=== PATIENT | female | born 1980 | race African-American/Black ===

== ENCOUNTER 2019-01-03 09:18 | Day surgery (SDC) | payer BC ==
[2019-01-03] VITALS (9 sets, daily range): BP systolic 108–136; BP diastolic 58–86
[~2019-01-03] VITALS: Ht 157.5 cm; Wt 63.5 kg
[~2019-01-03 09:18] MED LIST: IBUPROFEN600 MG ORAL; ceFAZolin sod 1 GM in NS 55 ML IVPB ONE
[2019-01-03 10:15] LABS: BASOPHILS % (AUTO) 1.4 % (0.0-2.0); EOSINOPHILS % (AUTO) 3.1 % (0.0-3.0); HEMATOCRIT 38.1 % (37.0-47.0); HEMOGLOBIN 12.2 G/DL (12.0-16.0); LYMPHOCYTES % (AUTO) 20.9 % (20.0-45.0); MEAN CORPUSCULAR VOLUME 84 FL (80-99); NEUTROPHILS % (AUTO) 64.6 % (45.0-75.0); PLATELET COUNT 215 K/UL (150-450); RED BLOOD COUNT 4.55 M/UL (4.20-5.40); RED CELL DISTRIBUTION WIDTH 12.3 % (11.6-14.8); WHITE BLOOD COUNT 6.3 K/UL (4.8-10.8)
[2019-01-03 10:26] LABS: ANION GAP 6 mmol/L (5-15); BLOOD UREA NITROGEN 11 mg/dL (7-18); CALCIUM 8.9 MG/DL (8.5-10.1); CARBON DIOXIDE 26 MMOL/L (21-32); CHLORIDE 106 MMOL/L (98-107); CREATININE 0.7 MG/DL (0.55-1.30); POTASSIUM 3.9 MMOL/L (3.5-5.1); SODIUM 138 MMOL/L (136-145)
[2019-01-03] MEDS ORDERED: Lidocaine 1% Plain 30 ml INJ ONE (10:32)
[2019-01-03] MEDS ORDERED: Bacitracin 50000 Units Vial ONE (10:32)
[2019-01-03] MEDS ORDERED: Dexamethasone 4mg/ml vial ONE ×2 (10:32→11:30)
[2019-01-03] MEDS ORDERED: Bacitracin Oint 15gm Tube TOPIC ONE (10:33)
--- NOTE | 2019-01-03 11:26 | Pre-Procedure Note/Attestation ---
Pre-Procedure Note/Attestation Complete Prior to Procedure Planned Procedure: bilateral Procedure Narrative: correction of hammer toe and mallet toe right 4th and 5th and left 5th with arthroplasty and tendon release with possible k-wire fixation Indications for Procedure Pre-Operative Diagnosis: painful hammer toe and mallet toe 4th and 5th right and 5th left Attestation I attest that I discussed the nature of the procedure; its benefits; risks and complications; and alternatives (and the risks and benefits of such alternatives ), prior to the procedure, with the patient (or the patient's legal regional sales representative). I attest that, if there was a reasonable possibility of needing a blood transfusion, the patient (or the patient's legal regional sales representative) was given the [place] [employer] standardized written summary, pursuant to the [place] Blood Safety Act ([place] Health and Safety Code # 1645, as amended). I attest that I re-evaluated the patient just prior to the surgery and that there has been no change in the patient's H&P, except as documented below: Keenan Mccullough DPM Jan 03, 2019 11:26
[2019-01-03] MEDS ORDERED: LR 1000ml 1,000 ML IVLG SCH (11:29)
[2019-01-03] MEDS ORDERED: Sodium Chloride 10ml vial INJ ONE (11:30)
[2019-01-03] MEDS ORDERED: HYDROcodone/Acetamin 7.5/325 tab ORAL PRN (11:30)
[2019-01-03] MEDS ORDERED: Ketorolac 30mg Inj IV PRN ×2 (11:30)
[2019-01-03] MEDS ORDERED: Sterile Water Irrig 1000ml IRRIG ONE (11:30)
[2019-01-03] MEDS ORDERED: HYDROcodone/Acetamin 5/325 tab ORAL PRN (11:30)
[2019-01-03] MEDS ORDERED: Acetaminophen (Non formulary) 100 ML IV ONE (11:30)
[2019-01-03] MEDS ORDERED: Metoclopramide 10mg/2ml Inj IVP PRN (11:30)
[2019-01-03] MEDS ORDERED: LORazepam Inj 2mg/ml 1ml IV PRN (11:30)
[2019-01-03] MEDS ORDERED: Midazolam 2mg/2ml Inj IVP PRN (11:30)
[2019-01-03] MEDS ORDERED: DiphenhydrAMINE 50mg/ml Inj IVP PRN (11:30)
[2019-01-03] MEDS ORDERED: NS Irrig 1000ml ONE (11:30)
[2019-01-03] MEDS ORDERED: Hydromorphone 0.5mg/0.5ml inj IVP PRN (11:30)
[2019-01-03] MEDS ORDERED: fentaNYL 100 mcg/2 mL IV PRN (11:30)
[2019-01-03] MEDS ORDERED: Labetalol 5mg/ml 20ml vial IV PRN (11:30)
[2019-01-03] MEDS ORDERED: Propofol 200mg/20ml IV ONE (11:30)
[2019-01-03] MEDS ORDERED: LR 1000ml ONE (11:30)
[2019-01-03] MEDS ORDERED: Lidocaine 1% MPF 10mg/ml 5ml ONE ×2 (11:30)
[2019-01-03] MEDS ORDERED: Atropine Sulfate 0.4mg/ml inj IVP PRN (11:30)
[2019-01-03] MEDS ORDERED: Meperidine 50mg/ml Inj(FOR RIGORS ONLY) IVP PRN (11:30)
[2019-01-03] MEDS ORDERED: oxyCODONE HCL/Acetaminophen 5/325mg ORAL PRN (11:30)
--- NOTE | 2019-01-03 11:36 | Anethesia Preoperative Eval ---
Anesthesia Pre-op PMH/ROS General Date of Evaluation: Jan 03, 2019 Time of Evaluation: 11:41 Anesthesiologist: Dylan ASA Score: ASA 1 Mallampati Score Class I : Soft palate, uvula, fauces, pillars visible Class II: Soft palate, uvula, fauces visible Class III: Soft palate, base of uvula visible Class IV: Only hard plate visible Mallampati Classification: Class I Surgeon: Sadia Diagnosis: Bilateral Hammertoes, 5th Metatarsal Surgical Procedure: Bilateral Hammertoes Correction, 5th Metatarsal, With Arthrotomy Anesthesia History: none Family History: no anesthesia problems Allergies: Coded Allergies: WHEAT (Verified Adverse Reaction, Intermediate, stomach problem, 01/02/19) Uncoded Allergies: tape (Allergy, Intermediate, hives, 01/02/19) adhesive tape Medications: see eMAR Patient NPO?: Yes Past Medical History PSxH Narrative: Uterine Myoma Sx Anesthesia Pre-op Phys. Exam Physician Exam Last Vital Signs Date Time Temp Pulse Resp B/P (MAP) Pulse Ox O2 Delivery O2 Flow Rate FiO2 01/03/19 10:12 Room Air 01/03/19 10:06 98.1 76 18 125/59 100 Constitutional: NAD Neurologic: CN 2-12 intact Cardiovascular: RRR Respiratory: CTA Gastrointestinal: S/NT/ND Airway Exam Mallampati Score: Class I MO: full ROM: full Teeth: intact Anesthesia Pre-op A/P Labs Hematology Test 01/03/19 09:50 White Blood Count 6.3 K/UL (4.8-10.8) Red Blood Count 4.55 M/UL (4.20-5.40) Hemoglobin 12.2 G/DL (12.0-16.0) Hematocrit 38.1 % (37.0-47.0) Mean Corpuscular Volume 84 FL (80-99) Mean Corpuscular Hemoglobin 26.8 PG (27.0-31.0) L Mean Corpuscular Hemoglobin Concent 32.0 G/DL (32.0-36.0) Red Cell Distribution Width 12.3 % (11.6-14.8) Platelet Count 215 K/UL (150-450) Mean Platelet Volume 7.6 FL (6.5-10.1) Neutrophils (%) (Auto) 64.6 % (45.0-75.0) Lymphocytes (%) (Auto) 20.9 % (20.0-45.0) Monocytes (%) (Auto) 10.0 % (1.0-10.0) Eosinophils (%) (Auto) 3.1 % (0.0-3.0) H Basophils (%) (Auto) 1.4 % (0.0-2.0) Coagulation Test 01/03/19 09:50 Prothrombin Time 10.5 SEC (9.30-11.50) Prothromb Time International Ratio 1.0 (0.9-1.1) Activated Partial Thromboplast Time 28 SEC (23-33) Chemistry Test 01/03/19 09:50 Sodium Level 138 MMOL/L (136-145) Potassium Level 3.9 MMOL/L (3.5-5.1) Chloride Level 106 MMOL/L (98-107) Carbon Dioxide Level 26 MMOL/L (21-32) Anion Gap 6 mmol/L (5-15) Blood Urea Nitrogen 11 mg/dL (7-18) Creatinine 0.7 MG/DL (0.55-1.30) Estimat Glomerular Filtration Rate > 60 mL/min (>60) Glucose Level 82 MG/DL (74-106) Calcium Level 8.9 MG/DL (8.5-10.1) Urine Test Test 01/03/19 09:40 Urine HCG, Qualitative Negative (NEGATIVE) Risk Assessment & Plan Assessment: ASA 1 Plan: GA, SED Status Change Before Surgery: No Pre-Antibiotics Dru Gram Ancef IV Given Within 1 Hr of Incision: Yes Time Given: 11:58 Gómez Dominique MD Jan 03, 2019 11:36
[2019-01-03] MEDS: Bupivacaine 0.25% Inj 30ml INJ ONE ×2 (11:45→12:30)
--- NOTE | 2019-01-03 12:32 | Immediate Post-Op Evaluation ---
Immediate Post-Op Evalulation Immediate Post-Op Evalulation Procedure: Bilateral Hammertoes Correction, 5th Metatarsal, With Arthrotomy Date of Evaluation: Jan 03, 2019 Time of Evaluation: 14:02 IV Fluids: 800 LR Blood Products: 0 Estimated Blood Loss: 15 Urinary Output: 0 Blood Pressure Systolic: 133 Blood Pressure Diastolic: 81 Pulse Rate: 76 Respiratory Rate: 16 O2 Sat by Pulse Oximetry: 100 Temperature (Fahrenheit): 97 Pain Score (1-10): 2 Nausea: No Vomiting: No Complications 0 Patient Status: awake, reacts, patent, none Hydration Status: adequate Dru Gram Ancef IV Given Within 1 Hr of Incision: Yes Time Given: 11:58 Gómez Dominique MD Jan 03, 2019 12:32
--- NOTE | 2019-01-03 12:33 | 48 Hour Post Anesthesia Eval ---
Post Anesthesia Evaluation Procedure: Bilateral Hammertoes Correction, 5th Metatarsal, With Arthrotomy Date of Evaluation: Jan 03, 2019 Time of Evaluation: 16:12 Blood Pressure Systolic: 121 0: 64 Pulse Rate: 64 Respiratory Rate: 18 Temperature (Fahrenheit): 98.2 O2 Sat by Pulse Oximetry: 100 Airway: patent Nausea: No Vomiting: No Pain Intensity: 0 Hydration Status: adequate Cardiopulmonary Status: Stable Mental Status/LOC: patient returned to baseline Follow-up Care/Observations: 0 Post-Anesthesia Complications: 0 Follow-up care needed: ready to discharge Gómez Dominique MD Jan 03, 2019 12:33
--- NOTE | 2019-01-03 13:41 | Brief Operative Note ---
Immediate Post Operative Note Operative Note Pre-op Diagnosis: painful hammer toe and mallet toe 4th and 5th right and 5th left Procedure: correction of hammer toe and mallet toe with arthroplasty pipj and dipj bilateral 5th and dipj 4rth right with tendon release. Post-op Diagnosis: same as pre-op Surgeon: keenan mccullough Anesthesiologist: michelle Anesthesia: MAC Specimen: yes Complications: none Condition: stable Fluids: 0 Estimated Blood Loss: none Drains: none Tourniquet time: 75 Implant(s) used?: No Keenan Mccullough DPM Jan 03, 2019 13:41
--- NOTE | 2019-01-03 17:47 | Diagnostic Imaging Report ---
Indication: Right foot pain Technique: 3 views right foot Comparison: none Findings: There is hammertoe deformity of the second through fifth digits. The joint spaces are preserved. No acute fractures. No dislocations. Impression: No acute process. Findings as noted
--- NOTE | 2019-01-03 17:47 | Diagnostic Imaging Report ---
Indication: Left foot pain Technique: 3 views left foot Comparison: none Findings: No acute fractures. No dislocations. There is hammertoe deformity of the second through fifth digits. There is mild degenerative change of the first metatarsophalangeal joint.. Impression: No acute process
--- NOTE | 2019-01-03 17:49 | Diagnostic Imaging Report ---
Indication: Postoperative , pain, status post osteotomy Technique: 3 views left foot Comparison: none Findings: Patient is status post osteotomy of the head of the fifth proximal phalanx. There is some irregularity in the soft tissues related to surgical exposure. No acute fractures. No dislocations. Impression: Postoperative left foot. No unusual features
--- NOTE | 2019-01-03 17:49 | Diagnostic Imaging Report ---
Indication: Postoperative pain Technique: 3 views right foot Comparison: None Findings: Patient is status post osteotomy of the distal aspect of the fifth proximal phalanx and the distal aspect of the fifth middle phalanx. There is also evidence of osteotomy of the fourth middle phalanx. Retained air from the surgical exposure is seen in the soft tissues. Impression: Postsurgical changes, as described. No unusual features
--- NOTE | 2019-01-03 22:15 | Pre-op HX & Phy Repo 2 SIG ---
DATE OF ADMISSION: 01/03/2019 NOTE: "DICTATION CANCELED" DATE OF SURGERY: 01/03/2019 at [facility]. HISTORY OF PRESENT ILLNESS: This is a 38-year-old female. Keenan Mccullough D.P.M. DR: SAMMIE JOB#: [id number] CC:
--- NOTE | 2019-01-03 22:30 | Pre-op HX & Phy Repo 2 SIG ---
DATE OF ADMISSION: 01/03/2019 HISTORY OF PRESENT ILLNESS: This is a 38-year-old female complaining of bilateral foot pain secondary to hammertoe and mallet toe that has resulted in a painful corn, bilateral foot for the past few years, but the pain and deformity has been progressively getting worse over the past few years. The patient has tried conservative treatment including padding, offloading, shoe gear, orthotics without any resolution in pain or deformity. She reports no recent illnesses. No recurrent nausea, vomiting, chills, or shortness of breath. The patient is scheduled to have surgery today at [facility]. PAST MEDICAL HISTORY: Positive for migraines. PAST SURGICAL HISTORY: None pertinent. ALLERGIES: No known drug allergies. SOCIAL HISTORY: Denies illicit drugs. FAMILY HISTORY: No pertinent findings. PHYSICAL EXAMINATION: VITAL SIGNS: Temperature is 98.8, pulse is 66, respiratory rate 16, and blood pressure is 120/80. DERMATOLOGICAL: There are no open lesions. There are multiple hyperkeratotic tissue with lesion on bilateral fifth PIPJ as well as the DIPJ joint and the fourth right distal interphalangeal joints. MUSCULOSKELETAL: Contracted digit bilaterally, fifth and fourth is noticed. Full muscle strength. No swelling is noted at this time. ASSESSMENT AND PLAN: This is a 38-year-old female with bilateral foot deformity secondary to hammertoe and mallet toe formation. The patient tried conservative measures, however, she still has daily pain. I recommended surgery as an extensive management. The risks, benefits, and alternatives were discussed with the patient in detail, who understands and would like to proceed with surgical intervention. All the patient's questions have been answered and the patient is scheduled to have surgery today at [facility]. Keenan Mccullough D.P.M. DR: Parisa JOB#: [id number] CC:
--- NOTE | 2019-01-04 05:00 | Operative Note - Dictated ---
DATE OF OPERATION: 01/03/2019 NOTE: POOR AUDIO LOCATION: [facility]. PREOPERATIVE DIAGNOSIS: Bilateral hammertoe and mallet toe fifth, mallet toe fourth, right foot. POSTOPERATIVE DIAGNOSIS: Hammertoe and mallet toe, bilateral fifth and fourth toe mallet toe, right. TITLE OF OPERATION: Correction of hammertoe and mallet toe with arthroplasty fifth PIPJ as well as DIPJ with release of tendon and fourth distal interphalangeal joint right foot arthroplasty with tendon release. HEMOSTASIS: Pneumatic ankle tourniquet at 250 mmHg. ESTIMATED BLOOD LOSS: Negligible. MATERIALS USED: 3-0 Vicryl, 4-0 Vicryl, 5-0 nylon. INJECTABLES: 20 mL of 0.25% plain Marcaine and 1% lidocaine in the ratio of 1:1 was injected in the right as well as left foot in terms of Mendez fashion at the digits fifth bilaterally and the fourth right. Postoperatively, 2 mL of dexamethasone plus 6 mL of Marcaine was injected into the digits fifth bilaterally and right fourth. PATHOLOGY: Bone resected from proximal phalanx and distal phalanx was sent to pathology for further study. DRESSING: The incision was covered using Steri-Strips, Steri-Strips, Xeroform, Betadine, bacitracin ointment, 4 x 4, sterile Coban. COMPLICATIONS: None. CONDITION: Stable. ANESTHESIOLOGIST: Gómez Dominique M.D. DESCRIPTION OF PROCEDURE IN DETAIL: The patient was brought into the operating room and placed in table in supine position. She was well padded to avoid any excessive pressure. The patient was then given 1 gram of Ancef before the start of surgery. A time-out was performed. A well-padded ankle pneumatic tourniquet was then placed about the patient's right as well as the left ankle. Local anesthesia block was administered to the patient in terms of Mendez block in the following digit, bilateral fifth and the fourth toe, right. The foot was then draped and scraped in the usual manner. Attention was then directed to the left foot. After Esmarch, a pneumatic ankle tourniquet was inflated to 250 mmHg. At this time, the preplanned incision was made on the fifth toe on the left. The incision was linear crossing the PIP as well as the DIPJ joint. The incision was deepened through subcutaneous tissue. The incision was deepened first down to the level of the capsule at the PIPJ joint. The PIPJ joint was transverse. The capsule was transverse and the head of the proximal phalanx was exposed. The lateral capsule was dissected away and at this time, it was noted that the head of the proximal phalanx is hypertrophic. At this time, about 3 mm of the head of the proximal phalanx of the left foot was removed. Attention was then noticed to the distal DIPJ joint. It was noticed that the contraction of the mallet still remained. A transverse capsulotomy was also performed at the distal joint where the head of the middle phalanx was then exposed. It was noted to be hypertrophic. Approximately 2 mm of the head was excised. At this time through the distal incision, the flexor tendon was tenotomized. It was noticed that the incision was in the very rectus position. At this time, the extensor tendon were reapproximated and closed using 3-0 Vicryl and subsequently the subcutaneous tissue was closed using 4-0 Vicryl after lavaging with normal saline and subsequently the skin was closed using 5-0 nylon. It was noticed after that the remains in good position. Steri-Strip was then utilized not crossing the wound as a stabilizing factor to 05:02 rectus. Dry sterile dressing was applied to the patient's foot that included Xeroform ointment, 4 x 4, Nunu, and Coban. At this time, the injection of dex and Marcaine was utilized at the injection sites for postoperative pain management. The ankle tourniquet was then deflated and immediate hyperemia was noted to digits 1 through 5 on the left foot. At this time, attention was then directed to the right foot with the fifth toe and the fourth toe were noticed to have suffered from deformity of the mallet and hammertoe. Attention was then directed to the fifth toe on the right where incision was made over the deformity linear incision crossing the PIP as well as the DIPJ joint. The incision was deepened through subcutaneous tissue. All bleeders are ligated and vital tissue was retracted. A transverse capsulotomy was performed at the head of the proximal phalanx. Head of the proximal phalanx was freed from its attachment. It was noticed to be hypertrophic at this time. A 2 to 3 mm of the head of the proximal phalanx was osteotomized and passed from the field. A correction was noticed, but it was noticed the distal joint continued to have contraction and mallet deformity. At this time, through the original incision, a transverse capsulotomy was also made over the DIPJ joint to expose the medial phalanx and the head of the medial phalanx was noted to be hypertrophic 06:42. 2 mm of the head of the medial phalanx was then osteotomized and passed from the field. At this time, attention was directed to the extensor tendon, which was noticed to be tight and contracted through the original incision, was done through the extensor tendon. The toe was seen in great improvement in rectus position. The tendons were reapproximated using 3-0 Vicryl. Subsequently, the subcutaneous tissue was closed using 4-0 Vicryl and subsequently the skin was closed using 4-0 nylon. Before the closure, the area was lavaged using normal saline and bacitracin solution. At this time, postoperative injection was given into the area. At this time, attention was then directed to the fourth toe where the deformity was noticed the distal interphalangeal joint and the second across the fourth toe, right, which was noticed to be mallet. A linear incision approximately 5 mm was done contouring the . The wedge of the skin was removed and then the incision was deepened through subcutaneous tissue down to the level of capsule and also a transverse capsulotomy was performed to expose the head of the middle phalanx. The head of the middle phalanx was noticed to be hypertrophic. Approximately using a sagittal saw, 2 mm of the head was osteotomized, passed from the field through the original incision. The plantar aspect was also released, which would be the extensor tendon. At this time, the joint was noticed to be in normal alignment. Subsequently, the extensor tendon was approximated using 3-0 Vicryl and the skin was closed using 4-0 nylon. At this time, injection of dex and Marcaine was given. Attention was directed to dressing where the fifth toe using Steri-Strips rectus position. following that the incisions were covered using Xeroform, bacitracin ointment, 4 x 4, Nunu, and Coban. After the dressing, the tourniquet was dropped and immediate hyperemia was noted to digits 1 through 5 on the right. The patient tolerated the procedure and surgery well. She was transferred from the surgery to recovery with verbal and written instructions with Dr. Mccullough and followup appointment. The patient will be discharged home when she is cleared by the anesthesiologist. There is no new complication for surgery. Jayjay JonesPIbeth DR: SAMMIE JOB#: [id number] CC:
== END 2019-01-03 15:59 | disposition home or self-care (01) ==
LOC: SUR 09:18
DX: M20.42 Other hammer toe(s) (acquired), left foot (principal); M20.41 Other hammer toe(s) (acquired), right foot; L84 Corns and callosities; Z91.018 Allergy to other foods
CPT/HCPCS: 28285; 36415; 73630; 80048; 81025; 85025; 85610; 85730; 93005; 97161; J0690; J1100; J1885; J2001; J2250; J2405; J2704; J3010; J3490; 94003; 94150